=== PATIENT | female | born 1955 | race Caucasian/White ===

== ENCOUNTER 2018-03-16 07:12 | Day surgery (SDC) | payer MEDICARE ==
[2018-03-16] MEDS ORDERED: Oxymetazoline HCl 0.05% ( 15 ML ) ONE ×2 (09:06→09:15)
[2018-03-16] MEDS ORDERED: Midazolam HCl 2 mg/2 ml Vial ONE (09:14)
[2018-03-16] MEDS ORDERED: Fentanyl 100 MCG/2 ML VIAL ONE (09:14)
[2018-03-16] MEDS ORDERED: Lidocaine 1% w/Epinephrine 1:100K 30 ML VIAL ONE (09:15)
[2018-03-16] MEDS ORDERED: Bacitracin Zinc Ointment 30 gm TUBE ONE (09:37)
[2018-03-16] MEDS ORDERED: PROPOFOL 200 MG/20 ML VIAL ONE (11:21)
[2018-03-16] MEDS ORDERED: Dexamethasone 20 MG/5 ML VIAL ONE (11:21)
[2018-03-16] MEDS ORDERED: Ondansetron HCl/PF 4 MG/2 ML Vial ONE (11:21)
[2018-03-16] MEDS ORDERED: Lidocaine 1% PF 5 ML VIAL ONE (11:21)
[2018-03-16] MEDS ORDERED: ePHEDrine/0.9% NaCl/PF SYRINGE 50 mg/10 ml ONE (11:21)
[2018-03-16] MEDS ORDERED: Succinylcholine Chloride 20 MG/ML 10 ml SYRINGE FS ONE (11:21)
--- NOTE | 2018-03-16 19:55 | OP ---
DATE OF PROCEDURE: 03/16/2018 PREOPERATIVE DIAGNOSES: 1. Chronic rhinosinusitis. 2. Nasal septal deviation. 3. Bilateral inferior turbinate hypertrophy. 4. Nasal obstruction. POSTOPERATIVE DIAGNOSES: 1. Chronic rhinosinusitis. 2. Nasal septal deviation. 3. Bilateral inferior turbinate hypertrophy. 4. Nasal obstruction. SURGEON: Mikey Caldera M.D. PROCEDURES: 1. Bilateral endoscopic sinus surgery, total ethmoidectomies. 2. Bilateral endoscopic sinus surgery, maxillary antrostomies. 3. Bilateral endoscopic sinus surgery, frontal sinusotomy. 4. Bilateral endoscopic sinus surgery, sphenoidotomies. 5. Nasal septoplasty. 6. Bilateral inferior turbinate submucosal resection. ESTIMATED BLOOD LOSS: 50 mL COMPLICATIONS: None. ANESTHESIA: GETA. PROCEDURE IN DETAIL: Patient was taken to the operating room and placed supine on the table. General endotracheal anesthesia was obtained by the Anesthesia staff. Tube was secured in the left lower lip . Patient was then placed in the beach chair position, and Afrin pledgets were placed in the nasal ca vity. Injections of 1% lidocaine with 1:100,000 epinephrine were made into the nasal septum as well a s the inferior turbinates. Patient was then prepped and draped in standard surgical fashion for nasal surgery. Following this, the Afrin pledgets were removed. A [place] incision was made on the left na portia septum. Submucoperichondrial dissection was performed. The deviated portions of the septum inclu ded portions of the cartilage and the bony septum. These isolated areas were removed using three cutt ing rongeurs. There was noted to be a large dorsal and caudal strut, left intact for support of the n ose. The mucoperichondrial flaps were then reapproximated using a 4-0 gut stitch. Any straight pieces of cartilage were crushed prior to this and placed between the mucoperichondrial flaps. Following th is, the inferior turbinates were then punctured with a submucosal coblation wand, and submucosal cobl ations were performed of multiple areas of the inferior portion of the anterior inferior turbinate. Please note that the submucosal microdebrider was used to submucosally resect the anterior and inferi or portions of the inferior turbinates bilaterally. Following this, the 0 degree scope was advanced into the middle meatus. The middle turbinate was gently medialized and the uncinate process was expo sed. The uncinate process bilaterally was then fractured anteriorly using the ball-ended probe. Fol lowing this, the uncinate process was removed bilaterally using the 0-degree microdebrider and upbiti ng Blakesley forceps. Following this, the natural maxillary sinus ostia was identified by using the ball-ended probe. This was gently widened using straight [place] forceps and the curved microdebri jacqueline. Following this, the ethmoidal bulla was identified and was punctured on its medial and inferior aspect and was removed bilaterally using the straight microdebrider and upbiting [place]ley forceps. Following this, the grand lamella was identified bilaterally and was punctured with a blunt ended te chnique into the posterior ethmoidal cells. Working from posterior to anterior, the ethmoidal cells were opened in a mucosal-sparing technique. Following this, the sphenoid sinus ostia was visualized bilaterally and was gently widened with the straight microdebrider in a medial and inferior direction bilaterally. Following this, the curved microdebrider and the 45 degree endoscope was used to furth er open the anterior ethmoidal cells as well as identify the frontal sinus ostia bilaterally. Follow ing this, the frontal sinus ostia was widened using the curved microdebrider and upbiting [place]ley f orceps bilaterally. Following this, the nasal cavity was irrigated. MeroPacks were placed within th e middle meatus. The patient tolerated the procedure well. [place] splints were placed and secured.
== END 2018-03-16 11:32 | disposition home or self-care (01) ==
LOC: SDC 07:12
PROVIDERS: ATTEND Otolaryngology Plastic Surgery within the Head & Neck
PROC: 09BV8ZZ Excision of Left Ethmoid Sinus, Via Natural or Artificial Opening Endoscopic (ICD-10-PCS; principal; 2018-03-16)
PROC: 09BU8ZZ Excision of Right Ethmoid Sinus, Via Natural or Artificial Opening Endoscopic (ICD-10-PCS; 2018-03-16)
PROC: 09BM8ZZ Excision of Nasal Septum, Via Natural or Artificial Opening Endoscopic (ICD-10-PCS; 2018-03-16)
DX: J32.9 Chronic sinusitis, unspecified (principal); J34.2 Deviated nasal septum; J34.3 Hypertrophy of nasal turbinates; Z88.8 Allergy status to other drugs, medicaments and biological substances
CPT/HCPCS: 85014; 93005; 93010; J1100; J2001; J2250; J2405; J2704; J3010